=== PATIENT | male | born 1955 | race Caucasian/White ===

== ENCOUNTER 2017-03-09 17:05 | Emergency (ER) ==
[2017-03-09 17:12] VITALS: BP 137/89; TEMP 99.2; BMI 32.5
--- NOTE | 2017-03-09 17:34 | ED.PDOC ---
General ED Provider: Dr. 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[ End ]feso4 lisinopril Time Seen by Physician: 17:31 Mode of Arrival: Walk-In Information Source: Patient Exam Limitations: No limitations Primary Care Provider: LAURENT CARUSO Nursing and Triage Documentation Reviewed and Agree: No Review of Systems - Review Of Systems Constitutional: Reports: Weakness Eyes: Reports: No symptoms Ears, Nose, Mouth, Throat: Reports: No symptoms Respiratory: Reports: No symptoms Cardiac: Reports: No symptoms GI: Reports: No symptoms : Reports: No symptoms Musculoskeletal: Reports: Other Neurological: Reports: Numbness, Tingling, Unable to move upper ext (left), Weakness Endocrine: Reports: No symptoms Hematologic/Lymphatic: Reports: No symptoms All Other Systems: Other Past Medical History - Past Medical History Previously Healthy: No Endocrine: Reports: None Cardiovascular: Reports: Hypertension Respiratory: Reports: None Hematological: Reports: None Gastrointestinal: Reports: None Genitourinary: Reports: None Neuro/Psych: Reports: None Musculoskeletal: Reports: None Cancer: Reports: None - Surgical History General Surgical History: Reports: Appendectomy, Other (vein stripping left leg- - hemorrhoids) - Family History Family History: Reports: None - Social History Smoking Status: Never smoker Hx Substance Use: No Alcohol Screening: None Physical Exam - Physical Exam Appearance: Well-appearing, No pain distress, Well-nourished Eyes: MAYO, EOMI, Conjunctiva clear ENT: Ears normal, Nose normal, Oropharynx normal Neck: Supple Respiratory: Airway patent, Breath sounds clear, Breath sounds equal, Respirations nonlabored Cardiovascular: RRR, Pulses normal, No rub, No murmur GI/: Soft, Nontender, No masses, Bowel sounds normal, No Organomegaly Musculoskeletal: Normal strength, ROM intact, No edema, No calf tenderness Skin: Warm, Dry, Normal color Neurological: Sensation intact, Motor intact, Reflexes intact (overshoots motion of left hand and arm strength intact), Cranial nerves intact, Alert, Oriented Psychiatric: Affect appropriate, Mood appropriate Interpretation - EKG Interpretation Time of EKG #1: 17:45 Rate: Normal Rhythm: Sinus ST Segment: Normal (lvh) Physician Notification - Case Discussed Physician Notified: JANNETTE BUSH Time of Notification: 19:19 (ACCEPTS NEURO FLOOR) Critical Care Note - Critical Care Note Total Time (mins): 0 Course - Course Hematology/Chemistry: 03/09/17 17:40 03/09/17 17:40 Orders, Labs, Meds: Lab Review 03/09/17 17:40 WBC 7.55 RBC 4.68 L Hgb 12.1 L Hct 38.8 L MCV 82.9 MCH 25.9 L MCHC 31.2 L RDW Coeff of Carmelo 15.3 H Plt Count 254 Immature Gran % (Auto) 0.1 Neut % (Auto) 68.9 Lymph % (Auto) 19.9 Pitt % (Auto) 6.2 Eos % (Auto) 4.0 Baso % (Auto) 0.9 Immature Gran # (Auto) 0.0 Neut # 5.2 Lymph # 1.5 Pitt # 0.5 Eos # 0.3 Baso # 0.1 Sodium 139 Potassium 4.0 Chloride 104 Carbon Dioxide 28 Anion Gap 11.0 BUN 15 Creatinine 1.11 H Estimated GFR (MDRD) 67.00 BUN/Creatinine Ratio 13.51 Glucose 84 Calcium 9.3 Total Bilirubin 0.25 AST 16 ALT 16 Alkaline Phosphatase 79 Total Protein 7.0 Albumin 3.8 Globulin 3.2 Albumin/Globulin Ratio 1.19 Orders Category Date Time Status EKG-(ED ONLY) Stat CARDIO 03/09/17 17:32 Completed CBC W/ AUTO DIFF Stat LAB 03/09/17 17:40 Completed COMPREHENSIVE METABOLIC PANEL Stat LAB 03/09/17 17:40 Completed Aspirin [Aspirin Chewable] MEDS 03/09/17 18:12 Discontinued 324 mg PO ONCE STA CT HEAD W/O CONTRAST Stat RADS 03/09/17 17:33 Completed Medications Discontinued Medications Generic Name Dose Route Start Last Admin Trade Name Freq PRN Reason Stop Dose Admin Aspirin 324 mg 03/09/17 18:12 03/09/17 18:21 Aspirin Chewable PO 03/09/17 18:13 324 mg ONCE STA Administration Vital Signs: Temp Pulse Resp BP Pulse Ox 03/09/17 17:06 99.2 F 82 20 137/89 96 Departure - Departure Time of Disposition: : Disposition: TSF SHORT-TRM HOSP Discharge Problem: TIA (transient ischemic attack) Qualifiers: Transient cerebral ischemia type: carotid artery syndrome (hemispheric) Qualifier Code: (G45.1) Carotid artery syndrome (hemispheric) Instructions: Transient Ischemic Attack (ED) Condition: Good 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
[2017-03-09 17:45] LABS: BASOPHILS # (AUTO) 0.1 K/uL (0-0.2); BASOPHILS % (AUTO) 0.9 % (0.0-3.0); EOSINOPHILS # (AUTO) 0.3 K/ul (0.0-0.7); HEMATOCRIT 38.8 % (42.0-52.0); HEMOGLOBIN 12.1 g/dl (14.0-18.0); IMMATURE GRANULOCYTE % (AUTO) 0.1 % (0.0-5.0); LYMPHOCYTES # (AUTO) 1.5 K/uL (0.60-3.4); LYMPHOCYTES % (AUTO) 19.9 (10.0-50.0); MEAN CORPUSCULAR HEMOGLOBIN 25.9 pg (27.0-31.0); MEAN CORPUSCULAR HGB CONC 31.2 (31.8-35.4); MEAN CORPUSCULAR VOLUME 82.9 fl (80.0-94.0); MONOCYTES # (AUTO) 0.5 K/uL (0.4-2.0); MONOCYTES % (AUTO) 6.2 (0-10); NEUTROPHILS # (AUTO) 5.2 K/ul (2.0-6.9); NEUTROPHILS % (AUTO) 68.9; PLATELET COUNT 254 10^3/uL (140-440); RED BLOOD COUNT 4.68 10^6/ul (4.70-6.10); WHITE BLOOD COUNT 7.55 K/ul (4.2-10.2)
[2017-03-09 18:04] LABS: ALBUMIN 3.8 g/dL (3.4-5.0); ALBUMIN/GLOBULIN RATIO 1.19; BILIRUBIN,TOTAL 0.25 mg/dL (0.00-1.20); BUN/CREATININE RATIO 13.51; CALCIUM 9.3 mg/dL (8.2-10.2); CREATININE 1.11 mg/dL (0.60-1.10)
--- NOTE | 2017-03-09 18:06 | CT ---
EXAM: CT scan of the head without contrast HISTORY: Numbness TECHNIQUE: Imaging of the head was performed without contrast. 5 mm thin axial images and coronal and sagittal images were provided for interpretation. FINDINGS: The martell-white interface appears normal. The lateral ventricles and cortical sulci are p rominent from atrophy. No acute hemorrhages are seen. There is no mass effect. The basal cisterns are patent. The paranasal sinuses and mastoid air cells are clear. The calvarium and extracranial soft tissues are normal. IMPRESSION: No acute intracranial abnormalities are seen.
[2017-03-09] MEDS ORDERED: ASPIRIN CHEWABLE PO STA (18:12)
== END 2017-03-09 19:50 | disposition short-term general hospital (02) ==
LOC: ED 17:05
DX: G45.1 Carotid artery syndrome (hemispheric) (principal); I10 Essential (primary) hypertension; Z79.899 Other long term (current) drug therapy
CPT/HCPCS: 36415; 80053; 85025; 93005; 93010; 99285

== ENCOUNTER 2017-03-09 19:56 | Outpatient (CLI) ==
[2017-03-09 17:12] VITALS: BMI 32.5
== END 2017-03-09 19:57 ==
LOC: AMBL 19:56
PROVIDERS: ATTEND Family Medicine
DX: R53.1 Weakness (principal); R20.0 Anesthesia of skin

== ENCOUNTER 2017-08-17 09:19 | Outpatient (CLI) | END 2017-08-17 09:20 | disposition home or self-care (01) | LOC: CAR 09:19 | PROVIDERS: ATTEND Physician Assistant | DX: Z01.810 Encounter for preprocedural cardiovascular examination (principal) | CPT/HCPCS: 93005; 93010 ==

== ENCOUNTER 2017-08-29 07:41 | Day surgery (SDC) ==
[2017-08-29] MEDS: TETRACAINE 0.5% UNIT-DOSE OP PRN ×3 (09:55→10:25)
[2017-08-29] MEDS: CYCLOGYL 2% OPTH OP PRN ×3 (09:55→10:05)
[2017-08-29] MEDS: KETOROLAC 0.5% OPTH SOL OP PRN ×3 (09:55→10:25)
[2017-08-29] MEDS: AK-DILATE 10% OPTH SOL OP PRN ×3 (09:55→10:05)
[2017-08-29] MEDS ORDERED: LIDOCAINE 1% 20 ML MDV ID ONE (10:22)
[2017-08-29] MEDS ORDERED: VERSED ONE (10:45)
[2017-08-29] MEDS ORDERED: PRED FORTE 1% OPTH SOL OP ONE (11:19)
[2017-08-29] MEDS ORDERED: OCUFLOX 0.3% OPTH SOL OP ONE (11:19)
[2017-08-29] MEDS ORDERED: BETADINE OPTH PREP OP ONE (11:19)
[2017-08-29] MEDS ORDERED: VOLTAREN 0.1% OPTH SOL OP ONE (11:19)
[2017-08-29] MEDS ORDERED: TIMOPTIC 0.5% OPTH OP ONE (11:19)
[2017-08-29 13:14] VITALS: BP 131/85; TEMP 97.1
--- NOTE | 2017-08-30 08:33 | OP ---
PREOPERATIVE DIAGNOSIS: LEFT EYE. POSTOPERATIVE DIAGNOSIS: SAME. OPERATION PHACOEMULSIFICATION ASPIRATION OF CATARACT LEFT EYE. PLACEMENT OF POSTERIOR CHAMBER LENS. PHACO TIME 7.1 SECONDS AT 5.0% POWER. LENS MODEL TECDIRK [id number]. DIOPTER +12.5D. TECHNIQUE: CLEAR CORNEA. ANESTHESIA: TOPICAL ANESTHESIA W/ANESTHESIA MONITORING. OPERATIVE REPORT: Topical anesthesia consisting of Tetracaine was applied to the cornea and Xylocaine Methyl Paraben free of MFP was injected intracamerally into the anterior chamber. The patient was then brought into the operating room , prepped and draped in the usual ophthalmic manner. A lid speculum was placed and the operating microscope was used. A paracentesis was made at the 3 o' clock position. A clear corneal incision was made just out to the limbus. The anterior chamber was entered just inside the clear cornea. Viscoelastic was injected into the anterior chamber. A capsulotomy was performed with a bent # 27 gauge needle. Phacoemulsification was then performed in the posterior chamber. After completion of the phacoemulsification, residual cortical material was aspirated with the irrigation-aspiration system. The posterior capsule was polished. Viscoelastic was injected into the anterior and posterior chambers to inflate the capsular bag. Lens were placed via an Unfolder system and stabilized in the bag. Viscoelastic was removed from the anterior chamber. The wound was checked for any leakage. The four sponges were removed from the fornix. Topical antibiotic steroid and nonsteroidal drops were also applied to the cornea. A Regan shield was applied. The patient left the operating room in good condition without any complications. INTRAOPERATIVE MEDICATIONS: Xylocaine Methyl Paraben Free MPF MTDD
== END 2017-08-29 13:02 | disposition home or self-care (01) ==
LOC: SURG 07:41
PROVIDERS: ATTEND Ophthalmology
DX: H25.13 Age-related nuclear cataract, bilateral (principal)

== ENCOUNTER 2017-09-06 10:16 | Outpatient (CLI) ==
--- NOTE | 2017-09-06 12:01 | US ---
EXAM: Ultrasound bilateral carotid duplex. HISTORY: Dizziness. COMPARISON: None available. TECHNIQUE: Multiple martell scale and color Doppler images were obtained. FINDINGS: Please note that estimates of internal carotid artery stenoses are based upon NASCET crite juan. Right carotid: Mild plaquing noted without 50% or greater stenosis. Peak systolic velocity measurem ent in the right internal carotid artery is 1.1 meters per second. Right internal to common carotid artery peak systolic velocity ratio measures 1.5. End diastolic velocity measurement in the right in ternal carotid artery is 0.3 meters per second. Flow in the right vertebral artery is antegrade. Left carotid: Mild plaquing noted without 50% or greater stenosis. Peak systolic velocity measureme nt in the left internal carotid artery is 0.8 meters per second. Left internal to common carotid art juice peak systolic velocity ratio measures 1.1. End diastolic velocity measurement in the left partner marketing intern al carotid artery measures 3.3 meters per second. Flow in the left vertebral artery is antegrade. IMPRESSION: 1. No evidence for 50% or greater stenosis in the right or left internal carotid artery. 2. Antegrade flow in both vertebral arteries.
== END 2017-09-06 10:17 | disposition home or self-care (01) ==
LOC: RAD 10:16
PROVIDERS: ATTEND Physician Assistant
DX: R42 Dizziness and giddiness (principal)

== ENCOUNTER 2018-04-11 12:51 | Outpatient (CLI) | END 2018-04-11 12:52 | disposition home or self-care (01) | LOC: CAR 12:51 | PROVIDERS: ATTEND Physician Assistant | DX: R06.02 Shortness of breath (principal) ==

== ENCOUNTER 2018-04-12 08:53 | Outpatient (CLI) ==
--- NOTE | 2018-04-12 09:45 | CT ---
EXAM: CT of the right hand without contrast History: Swelling of the right hand over the third and fourth distal metacarpals. Technique: Multiplanar CT images through the right hand were obtained with and without the administr ation of IV contrast Findings: No acute fracture or dislocation. Joint spaces are relatively preserved. No abnormal calc ifications or radiopaque foreign bodies. No periostitis and no osseous destruction. Focal area of s ubcutaneous edema over the third and fourth metacarpal shafts measuring about 2.2 cm x 2.5 cm. Evalu ation for abscess is limited due to lack of IV contrast but no obvious drainable fluid collections ar e identified. Impression: 1. No acute osseous abnormality and no evidence for osteomyelitis. 2. Focal area of subcutaneous edema over the third and fourth metacarpal shafts could be due to trau ma or cellulitis. There is no obvious abscess.
== END 2018-04-12 08:54 | disposition home or self-care (01) ==
LOC: RAD 08:53
PROVIDERS: ATTEND Physician Assistant
DX: R22.31 Localized swelling, mass and lump, right upper limb (principal)

== ENCOUNTER 2018-07-06 10:41 | Outpatient (CLI) ==
--- NOTE | 2018-07-06 11:36 | DI ---
EXAM: Two views of the chest. History: Short of breath Comparison: Chest radiograph 01/17/2016 Findings: Heart size is borderline enlarged. No focal consolidation. No appreciable pleural fluid and no pneumothorax. Atherosclerotic vascular calcifications. No acute osseous abnormalities. Hiat al hernia again noted. Impression: 1. No acute cardiopulmonary process. 2. Hiatal hernia
== END 2018-07-06 10:42 | disposition home or self-care (01) ==
LOC: RAD 10:41
PROVIDERS: ATTEND Physician Assistant
DX: R06.02 Shortness of breath (principal)